=== PATIENT | male | born 1980 | race Caucasian/White ===

== ENCOUNTER 2020-07-17 18:36 | Emergency (ER) | payer OTHER ==
[2020-07-17 19:32] LABS: HEMOGLOBIN 15.9 gm/dl (14.0-17.5); RED BLOOD COUNT 5.06 M/UL (4.20-5.50); WHITE BLOOD COUNT 11.6 K/UL (4.5-11.0)
[2020-07-17 19:50] LABS: BUN/CREATININE RATIO 18 (0-10)
[2020-07-17] MEDS ORDERED: CEFUROXIME500 MG PO (21:46)
[2020-07-17] MEDS ORDERED: FLOMAX0.4 MG PO (23:19)
[2020-07-17] MEDS ORDERED: TORADOL 10 MG T10 MG PO (23:19)
== END 2020-07-17 23:21 | disposition home or self-care (01) ==
LOC: ER1 18:36
PROVIDERS: Physician Assistant
DX: R31.9 Hematuria, unspecified (principal)
CPT/HCPCS: 80053; 81001; 85025; 87086; 96365; 99284; J0696; J7030